=== PATIENT | female | born 1950 | race Two or more races ===

== ENCOUNTER 2018-08-02 08:15 | Emergency (ER) | payer OTHER ==
[~2018-08-02] VITALS: Ht 154.9 cm; Wt 108.9 kg
[2018-08-02 08:32] VITALS: BP 170/77
[2018-08-02] MEDS ORDERED: amLODIPine BESYLATE 5 MG TAB PO ONE (08:45)
[2018-08-02] MEDS ORDERED: PROMETHAZINE HCL 25 MG/ML 1ML IM ONE (09:15)
[2018-08-02] MEDS ORDERED: KETOROLAC TROMETH 60MG/2ML VIAL IM ONE (09:15)
[2018-08-02] MEDS ORDERED: diphenhdrAMINE HCL 25 MG CAP PO ONE (09:15)
== END 2018-08-02 10:06 | disposition home or self-care (01) ==
LOC: ER 08:18
DX: R51 Headache (principal); I10 Essential (primary) hypertension; Z90.49 Acquired absence of other specified parts of digestive tract
CPT/HCPCS: 70450; 96372; 99284; J1885; J2550